=== PATIENT | female | born 2000 | race Caucasian/White ===

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

== ENCOUNTER 2020-07-25 13:23 | Outpatient (RCR) | payer BC, MEDICARE, SELFPAY | END 2020-10-07 23:59 | LOC: IMMUN 13:23 | PROVIDERS: PCP Pediatrics; Visit Provider Family Medicine | DX: Z23 Encounter for immunization (principal) | CPT/HCPCS: 0001A; 0002A; 91300 ==

== ENCOUNTER 2022-04-02 14:56 | Emergency (ER) | payer BC, SELFPAY ==
[2022-04-02 14:57] VITALS: BP 161/109; PULSE 107; RESP 18; TEMP 36.2; O2SAT 98; BMI 32.5
--- NOTE | 2022-04-02 15:38 | EDS_ITS ---
HPI <LOUIE Pardo - Last Filed: 04/02/22 16:56> History of Present Illness Chief Complaint: Bite Narrative Narrative: Patient presents today after being bit by her dog on the right hand. She states the mailman arrived and the dog got very excited and she tried to calm him down but he bit her. She has several small and superficial puncture wounds on her right hand. She initially presented to urgent care where they flushed the wounds for 15 minutes. Her last tetanus was in 2016. [facility] <LOUIE Pardo - Last Filed: 04/02/22 16:56> [facility] Medical History Anxiety HTN (hypertension) Home Medications cholecalciferol (vitamin D3) 25 mcg (1,000 unit) tablet (Vitamin D3) 1,000 unit PO DAILY 10/08/15 [History Last Taken Unknown] ondansetron 4 mg disintegrating tablet 4 mg PO Q8H PRN PRN Nausea 10/08/15 [History Last Taken Unknown] amlodipine 10 mg tablet 10 mg PO QHS 11/28/18 [History Last Taken Unknown] aspirin 81 mg tablet,delayed release 81 mg PO DAILY@0800 11/28/18 [History Last Taken Unknown] duloxetine 60 mg capsule,delayed release 60 mg PO DAILY 11/28/18 [History Last Taken Unknown] ferrous sulfate, dried 159 mg (45 mg iron) tablet,extended release 159 mg PO DAILY 11/28/18 [History Last Taken Unknown] hyoscyamine sulfate 0.125 mg sublingual tablet 0.125 mg SL 4X/DAY PRN PRN Cramp 11/28/18 [History Last Taken Unknown] magnesium oxide 400 mg (241.3 mg magnesium) tablet 400 mg PO DAILY 11/28/18 [History Last Taken Unknown] rizatriptan 10 mg tablet 10 mg PO PRN PRN Headache 11/28/18 [History Last Taken Unknown] sodium di- and monophosphate-potassium phos monobasic 250 mg tablet 250 mg PO BID 11/28/18 [History Last Taken Unknown] tacrolimus 0.5 mg capsule, immediate-release 1 mg PO BID 11/28/18 [History Last Taken Unknown] amoxicillin 875 mg-potassium clavulanate 125 mg tablet 1 tab PO BID dog bite 7 days #14 tabs 04/02/22 [Rx Last Taken Unknown] Allergy/AdvReac Type Severity Reaction Status Date / Time NSAIDS (Non-Steroidal AdvReac Other Verified 04/02/22 14:58 Anti-Inflamma pseudoephedrine HCl AdvReac Other Verified 04/02/22 14:58 [From [facility]] Social History Smoking Status: Never smoker ROS <LOUIE Pardo - Last Filed: 04/02/22 16:56> ROS ED Constitutional Constitutional ED: Denies chills, fever(s) or sweats Eyes Eyes: Denies blurry vision or change in vision ENT ENT ED: Denies nasal congestion, rhinorrhea or sore throat Cardiovascular Cardiovascular: Denies chest pain, palpitations or racing heartbeat Respiratory/Chest Respiratory/Chest: Denies cough, dyspnea, dyspnea on exertion, shortness of breath at rest or shortness of breath with exertion Gastrointestinal Gastrointestinal: Denies abdominal pain, diarrhea, nausea or vomiting Genitourinary Genitourinary ED: Denies dysuria, hematuria or urinary frequency Musculoskeletal Musculoskeletal: Denies arthralgias, myalgias or neck pain Integumentary Reports other Details: Several superficial puncture wounds to her right hand. ; Denies abscess or rash Neurologic Neurologic: Denies headache(s), paresthesias or weakness Psychiatric Psychiatric: Denies anxiety or depression Hematologic/Lymphatic Hematologic/Lymphatic: Denies easy bleeding EXAM <LOUIE Pardo - Last Filed: 04/02/22 16:56> Physical Exam Const Vital Signs: 04/02/22 14:57 Temperature 97.2 F L Temperature Source Temporal Pulse Rate 107 H Respiratory Rate 18 Blood Pressure 161/109 H Blood Pressure Mean 126 Pulse Ox 98 Oxygen Delivery Method Room Air Positive well developed and obese General Appearance ED: well developed Nutritional Appearance: obese HEENT atraumatic; Negative for tenderness Eyes PERRL and EOMs intact bilaterally Neck full ROM General: Negative for tenderness Chest Wall inspection of chest normal Resp normal respiratory effort and clear to auscultation bilaterally Cardio regular rhythm and no murmurs Rate: regular rate GI non-tender, non-distended and no masses Palpation: soft Back/Spine normal to inspection and no thoracic nor lumbar tenderness Cervical Spine: Negative for cervical spine tenderness Extremity full ROM Extremity Narrative: Patient has mild edema to her right hand and several superficial puncture wounds. She has intact sensation. Radial pulses 2+ and normal capillary refill. Neuro oriented x3, CN's II-XII intact bilaterally, moves all extremities, no focal motor deficits, no sensory deficits noted and gait normal Motor Exam: strength 5/5 throughout Psych mental status grossly normal and thought process normal Skin skin turgor normal Skin Narrative: See extremity. Rashes: No rashes noted <Dr. David Kelly DO - Last Filed: 04/02/22 17:31> Physical Exam Const Vital Signs: 04/02/22 14:57 Temperature 97.2 F L Temperature Source Temporal Pulse Rate 107 H Respiratory Rate 18 Blood Pressure 161/109 H Blood Pressure Mean 126 Pulse Ox 98 Oxygen Delivery Method Room Air MDM <LOUIE Pardo - Last Filed: 04/02/22 16:56> [facility] Narrative Medical decision making narrative: Patient's wounds have been irrigated and cleaned and bacitracin ointment was applied. She will be sent home with Augmentin. I have given her return instructions. I am comfortable with her discharging home and patient is comfortable with plan. <Dr. David Kelly, - Last Filed: 04/02/22 17:31> [facility] Narrative Medical decision making narrative: Patient's wounds have been irrigated and cleaned and bacitracin ointment was applied. She will be sent home with Augmentin. I have given her return instructions. I am comfortable with her discharging home and patient is comfortable with plan. This patient was seen with a PA/SOLAR SALES REPRESENTATIVE AND ASSESSOR Individually assessed they patient including history and physical. I have reviewed everything on the chart that is available and agree with the documentation provided by the PA/SOLAR SALES REPRESENTATIVE AND ASSESSOR including discussion about the assessment, treatment plan, discussion, and return precautions. Patient with superficial dog bites to the right hand. She reports this is her own dog. She was trying to restrain a dog who was trying to get out of the door to get the mailman. She reports that the dog has had all of its necessary shots. She reports that her tetanus immunization is up-to-date. Patient's wounds were cleaned here in the ED. She is counseled that these will need to close by secondary intention. Patient started Augmentin. Return precautions were discussed. Lab Data Attestation: I reviewed the patient's lab results. Discharge Plan Triage Chief Complaint: Bite ED Midlevel Provider: Kaitlyn Burr ED Provider: David Kelly Dx/Rx/DC Orders Clinical Impression: Dog bite Instructions: ED Dog Bite Prescriptions: New amoxicillin-pot clavulanate 875-125 mg tablet 1 tab PO BID 7 Days Qty: 14 0RF No Action cholecalciferol (vitamin D3) [Vitamin D3] 1,000 UNIT tablet 1,000 unit PO DAILY ondansetron 4 MG tablet 4 mg PO Q8H PRN PRN (Reason: Nausea) rizatriptan 10 tablet 10 mg PO PRN PRN (Reason: Headache) aspirin 81 MG tablet 81 mg PO DAILY@0800 magnesium oxide 400 MG tablet 400 mg PO DAILY amlodipine 10 tablet 10 mg PO QHS hyoscyamine sulfate 0.125 MG tablet, sublingual 0.125 mg SL 4X/DAY PRN PRN (Reason: Cramp) sod phos di, mono-K phos mono 250 MG tablet 250 mg PO BID tacrolimus 0.5 capsule 1 mg PO BID duloxetine 60 MG capsule,delayed release(DR/EC) 60 mg PO DAILY ferrous sulfate, dried 159 MG tablet extended release 159 mg PO DAILY Primary Care Provider: Ibrahima Dorman Referrals: Ibrahima Dorman MD [Primary Care Provider] - 3-5 Days if not improving Activity Restrictions/Additional Instructions: Clean area daily with mild soap. You can apply bacitracin ointment or petroleum jelly to the areas and keep covered and dry with a bandage. Please return if you see increased redness, increased swelling, pus-like discharge, or if fever develops. Disposition Disposition: Home, Self Care Discharge Date/Time: 04/02/22 16:20
== END 2022-04-02 16:20 | disposition home or self-care (01) ==
PROVIDERS: Emergency Provider Student in an Organized Health Care Education/Training Program; PCP Pediatrics; Visit Provider Student in an Organized Health Care Education/Training Program
DX: S61.451A Open bite of right hand, initial encounter (principal); I10 Essential (primary) hypertension; E66.9 Obesity, unspecified; W54.0XXA Bitten by dog, initial encounter; Z23 Encounter for immunization
CPT/HCPCS: 90471; 90715; 99282